=== PATIENT | female | born 1985 | race Caucasian/White ===

== ENCOUNTER 2024-03-16 08:57 | Emergency (ER) | payer BC, SELFPAY ==
[2024-03-16 08:58] VITALS: BP 124/87
[2024-03-16 09:22] VITALS: BMI 24.7
[2024-03-16 09:53] LABS: ALT (SGPT) 32 U/L (0-35); AST (SGOT) 34 U/L (14-36); Albumin 4.3 g/dl (3.5-5.0); Alkaline Phosphatase 61 U/L (38-126); Blood Urea Nitrogen 12 mg/dl (7-17); Calcium 8.7 mg/dl (8.4-10.2); Carbon Dioxide 26 mmol/L (22-30); Chloride 103 mmol/L (98-107); Estimated Creatinine Clearance 99 ml/min; Glucose 107 mg/dl (70-99); Potassium 3.9 mmol/L (3.5-5.1); Sodium 139 mmol/L (135-145); Total Bilirubin 0.4 mg/dl (0.2-1.3); Total Protein 6.7 g/dl (6.3-8.2); eGFR > 60.00
[2024-03-16 09:55] LABS: Hemoglobin 13.6 g/dL (12.0-16.0); Mean Corp Hgb Conc. 33.2 g/dL (33.0-37.0); Mean Corpuscular Hgb 29.5 pg (27.0-31.0); Mean Corpuscular Volume 88.9 fL (81.0-99.0); Mean Platelet Volume 10.1 fL (7.4-10.4); Platelet Count 170 10^3/uL (130-400); Red Blood Cell Count 4.61 10^6/uL (4.20-5.40)
[2024-03-16 10:00] VITALS: BP 119/68
[2024-03-16 10:10] LABS: Absolute Neutrophils -Man Diff 1.1 10^3/uL (1.4-6.5); Band Neutrophils 8 % (0-3); Eosinophils 5 % (0-6); Lymphocytes 23 % (20-51); Monocytes 10 % (2-9); Segmented Neutrophils 48 % (42-75)
[2024-03-16 10:11] LABS: Atypical Lymphocytes 6 %; Platelets Checked YES
[2024-03-16 10:13] LABS: Normal RBC Morphology No; Ovalocytes FEW; Total Cells Counted 100
--- NOTE | 2024-03-16 10:36 | ED.GENMED ---
History of Present Illness
General
Chief Complaint: Abnormal Lab Value
Source: patient and family
Exam Limitations: none
Time Seen by Provider: 03/16/24 09:04
Nursing documentation reviewed up to this point in time: agreed with
History of Present Illness
History of Present Illness:
38-year-old female presenting to the emergency department today with concerns of a white blood cell count of 1.9. Has had bodyaches in the morning over the past few days denies any ongoing symptoms at this point. Denies any chest pain shortness of
breath fevers or recent illness. No history of similar symptoms.
Review of Systems
Review of Systems
Allergies reviewed?: Yes
All Other Systems: ROS reviewed and negative except as documented in HPI and ROS
Phy Exam
Physical Exam
Physical Exam:
GENERAL: Alert , in no apparent distress
EYE: pupils equal and reactive
NECK: Supple, no significant adenopathy.
ENT: o/p clr, mmm.
CARDIAC: Regular rate and rhythm .
LUNGS: Clear breath sounds bilaterally, no acute respiratory distress, no wheezes/rales/rhonchi
ABDOMEN: Soft, without focal tenderness, no r/g, no cvat
NEUROLOGICAL: Alert and oriented, no focal neuro deficits
SKIN: Warm and dry, skin intact.
MUSCULOSKELETAL: No edema, well perfused.
PSYCH: Normal and appropriate interaction.
Course
Orders/Labs/Results
Orders:
Orders
03/16/24 09:31
CMP [Comprehensive Metabolic Panel] Urgent
Complete Blood Count/With Diff Urgent
Manual Differential Urgent
03/16/24 10:58
COVID-19 Antigen Urgent
Source: Nasal Swab
03/16/24 11:26
Add On - Microbiology Urgent
Tests Added?: influenza testing added to covid
Abnormal Lab Results
03/16/24
09:31
WBC 2.0 L* 10^3/uL
(4.8-10.8)
Abs Neuts (Manual) 1.1 L 10^3/uL
(1.4-6.5)
Band Neutrophils 8 H %
(0-3)
Monocytes (Manual) 10 H %
(2-9)
Glucose 107 H mg/dl
(70-99)
03/16/24 09:31
03/16/24 09:31
Vital Signs
Initial and Last Documented VS:
Initial Vital Signs
Temp Pulse Resp BP Pulse Ox
99.0 F 96 16 124/87 99
03/16/24 08:58 03/16/24 08:58 03/16/24 08:58 03/16/24 08:58 03/16/24 08:58
Last Documented Vital Signs
Temp Pulse Resp BP Pulse Ox
99.0 F 96 16 124/87 99
03/16/24 08:58 03/16/24 08:58 03/16/24 08:58 03/16/24 08:58 03/16/24 08:58
MDM/Problems Addressed
MDM/Problems Addressed:
38-year-old female presenting to the emergency department today with concerns of low white count. She has an outpatient had random body aches over the past few days. Here asymptomatic normal physical examination vital signs normal labs showing
white count 2.08% band neutrophils. Other labs unremarkable. Case discussed with hematology that claims this could be a virus. Source would be unclear. This was discussed with the patient will follow-up closely as an outpatient for repeated labs
and return for any worsening or progressive symptoms.
*Critical Care Note
Total Time (30-74mins, 75-104mins- exclusive of procedures): Not Applicable
ED Attending Note
-
Portions of this chart may have been created with voice recognition software.� Occasional wrong word or��sound alike� substitutions may have occurred due to the inherent limitations of voice recognition software.
Discharge Plan
Departure
Patient Disposition: Home (Routine Discharge)
Date of Disposition: 03/16/24
Time of Disposition: 12:17
Patient with high blood pressure during this ER visit?: No
Condition: Good
Covid-19: Not Applicable
Discharge Problem:
Leukopenia
Referrals:
Christina Lynch MD [Family Provider] -
Wong Willett MD [Active] - Follow up in 5-7 days
Activity Restrictions/Additional Instructions:
You came to the emergency department today with concerns of low white count. Please follow-up within 1 week with your primary care doctor to have repeated labs. Please follow-up with a research laboratory technician if abnormalities continue. Return to the
emergency department for any worsening, new or concerning symptoms.
Interventions
Interventions:
*Risk Screen - Suicide Last Done: 03/16/24 08:58
*General Assessment Last Done: 03/16/24 08:58
*Neglect/Abuse Screening Last Done: 03/16/24 08:58
*ED COVID-19 Vaccine History Last Done: 03/16/24 08:58
Discharge Date and Time
Print Language: CHILEAN
[2024-03-16 11:41] LABS: COVID-19 Antigen Negative (Negative)
[2024-03-16 12:00] VITALS: BP 121/70
== END 2024-03-16 13:15 | disposition home or self-care (01) ==
LOC: EMR 08:57
PROVIDERS: Physician Assistant; EMERGENCY PHYSICIAN Student in an Organized Health Care Education/Training Program; FAMILY PHYSICIAN Family Medicine
DX: D72.819 Decreased white blood cell count, unspecified (principal)
CPT/HCPCS: 99283; 80053; 85025; 87811